=== PATIENT | female | born 1995 | race Caucasian/White ===

== ENCOUNTER 2023-12-27 23:35 | Emergency (ER) | payer OTHER ==
[~2023-12-27] VITALS: Ht 154.9 cm; Wt 63.5 kg
[2023-12-28 00:44] VITALS: BP 139/82; PULSE 112; RESP 18; TEMP 98.4; O2SAT 100
[2023-12-28 02:44] LABS: BASOPHILS % (AUTO) 0.5 % (0.0-2.0); EOSINOPHILS # (AUTO) 0.1 K/uL (0-0.4); EOSINOPHILS % (AUTO) 0.8 % (0.0-4.0); HEMATOCRIT 40.9 % (36-48); HEMOGLOBIN 14.3 g/dL (12.0-16.0); LYMPHOCYTES # (AUTO) 1.6 K/uL (2.5-16.5); MEAN CORPUSCULAR HEMOGLOBIN 31 pg (27-31); MEAN CORPUSCULAR HGB CONC 35 g/dL (33-37); MEAN CORPUSCULAR VOLUME 87.7 fL (80-94); MONOCYTES # (AUTO) 0.7 K/uL (0.8-1.0); MONOCYTES % (AUTO) 9.1 % (1.7-9.3); NEUTROPHILS % (AUTO) 67.6 % (42.2-75.2); PLATELET COUNT (AUTO) 340 K/uL (140-450); RED BLOOD CELL COUNT(AUTO) 4.66 MIL/uL (4.20-5.40); RED CELL DISTRIBUTION WIDTH 14.2 % (11.6-13.7); WHITE BLOOD COUNT (AUTO) 7.3 K/uL (4.8-10.8)
[2023-12-28 02:46] LABS: APPEARANCE,URINE SL CLOUDY (CLEAR); BILIRUBIN,URINE NEGATIVE (NEGATIVE); BLOOD, URINE NEGATIVE (NEGATIVE); COLOR,URINE YELLOW (YELLOW); LEUKOCYTE ESTERASE ,URINE TRACE (NEGATIVE); NITRITE, URINE NEGATIVE (NEGATIVE); PH,URINE 6.5 (5.0-9.0); PROTEIN,URINE NEGATIVE (NEGATIVE); UGLUCOSE NEGATIVE (NEGATIVE)
[2023-12-28 02:53] LABS: BACTERIA,URINE >30 (MANY) /HPF (None Seen); MUCUS,URINE 1+ /LPF (None Seen); RBC,URINE 0-5 /HPF (0-5); SQUAMOUS EPITHELIAL CELL,UR 4-10 (MOD) /LPF (0-3 (FEW))
[2023-12-28] MEDS: ONDANSETRON 4 MG/2 ML VIAL IVP ONE (02:55)
[2023-12-28 02:56] LABS: AMPHETAMINE, URINE NEGATIVE ng/ml (NEG <=1000); BARBITURATE, URINE NEGATIVE ng/ml (NEG <=200); BENZODIAZEPINE, URINE NEGATIVE ng/mL (NEG <=200); CANNABINOID, URINE NEGATIVE ng/mL (NEG <=50); COCAINE, URINE NEGATIVE ng/mL (NEG <=300); OPIATE, URINE NEGATIVE ng/mL (NEG <=2000); PHENCYCLIDINE SCREEN,URINE NEGATIVE ng/mL (NEG <=25)
[2023-12-28] MEDS: NACL 0.9% 1,000 ML IV SCH (03:00)
[2023-12-28 03:01] LABS: ANION GAP 12.8 (8-16); CALCIUM 8.6 mg/dL (8.5-10.1); CARBON DIOXIDE 27.8 mmol/L (21-32); CREATININE 0.6 mg/dL (0.6-1.3); POTASSIUM 3.6 mmol/L (3.5-5.1)
[2023-12-28 03:17] LABS: ALANINE AMINOTRANSFERASE 40 U/L (12-78); ALBUMIN 3.8 g/dL (3.4-5.0); ALKALINE PHOSPHATASE 60 U/L (50-136); ASPARTATE AMINOTRANSFERASE 17 U/L (15-37); BILIRUBIN,DIRECT 0.1 mg/dL (0.0-0.3); FREE T4 (FREE THYROXINE) 1.06 ng/dL (0.76-1.46); LIPASE 51 U/L (16-77); THYROID STIMULATING HORMONE 3.77 uIU/mL (0.34-3.74); TOTAL BILIRUBIN 0.8 mg/dL (0.0-1.0); TOTAL PROTEIN, SERUM 7.8 g/dL (6.4-8.2)
[2023-12-28 03:19] LABS: ACETAMINOPHEN < 0.5 ug/ml (10-30); ALCOHOL, BLOOD < 3 mg/dL (<10); SALICYLATE < 2.8 mg/dL (2.8-20.0)
[2023-12-28] MEDS ORDERED: ONDA-188 SL (03:45)
[2023-12-28] MEDS ORDERED: CEPH-588 PO (03:45)
== END 2023-12-28 03:48 | disposition home or self-care (01) ==
LOC: MED 23:35
DX: N30.00 Acute cystitis without hematuria (principal); R42 Dizziness and giddiness; R11.0 Nausea; R51.9 Headache, unspecified; Z79.899 Other long term (current) drug therapy
CPT/HCPCS: 36415; 80048; 80076; 80305; 81001; 81025; 83690; 84439; 84443; 85025; 87086; 93005; 96361; 96374; 99284; G0480; G0482; J2405; J7030